=== PATIENT | male | born 1965 | race African-American/Black ===

== ENCOUNTER 2020-06-16 17:47 | Outpatient (CLI) | payer OTHER | END 2020-06-16 17:48 | disposition home or self-care (01) | LOC: LABBT 17:47 | PROVIDERS: ATTEND Surgery | DX: Z01.818 Encounter for other preprocedural examination (principal); Z20.822 Contact with and (suspected) exposure to COVID-19; M48.02 Spinal stenosis, cervical region | CPT/HCPCS: 80048; 85027; 85610; 85730; 86850; 86900; 86901; 87635; 93005; 93010; U0003; U0005 ==

== ENCOUNTER 2020-06-19 07:43 | Day surgery (SDC) | payer OTHER ==
[2020-06-16 21:11] LABS: Hemoglobin 14.3 g/dL (13.5-17.5); Mean Corpuscular HGB CONC 32.4 g/dL (32.0-36.0); Mean Corpuscular Hemoglobin 27.9 pg (27.0-33.0); Mean Corpuscular Volume 86.1 fl (81.2-95.1); Mean Platelet Volume 11.5 fl (7.4-10.4); Platelet Count 178 10x3/uL (150-450); RBC Distribution Width 12.8 % (11.5-14.5); Red Blood Cell (RBC) Count 5.12 10x6/uL (4.32-5.72); White Blood Cell (WBC) Count 5.9 10x3/uL (3.5-10.5)
[2020-06-16 21:23] LABS: Anion Gap 13 mmol/L (10-20); BUN (Urea Nitrogen) 18 mg/dL (8.4-25.7); Calc. Creatinine Clearance 0 mL/min (70-130); Calcium 9.1 mg/dL (7.8-10.44); Carbon Dioxide 31 mmol/L (22-29); Chloride 101 mmol/L (98-107); Glucose 73 mg/dL (70-105); Potassium 3.9 mmol/L (3.5-5.1); Sodium 141 mmol/L (136-145)
[2020-06-16 21:26] LABS: PTT 26.3 sec (22.0-33.0); Prothrombin Time 10.7 sec (9.5-12.1)
[2020-06-17 06:59] LABS: SARS-CoV-2 PCR by NAA Not Detected (NotDetected)
[2020-06-18 10:34] VITALS: BMI 30.5
[2020-06-19] MEDS ORDERED: Thrombin 5000 UNITS/5 ML VIAL ONE (08:57)
[2020-06-19] MEDS ORDERED: PHENYLEPHRINE-NS 100 MCG/ML 10 ML SYRINGE ONE (09:57)
[2020-06-19] MEDS ORDERED: Ondansetron PF 4 MG/2 ML Vial ONE (09:57)
[2020-06-19] MEDS ORDERED: ePHEDrine Sulfate 50 MG/10 ML VIAL ONE (09:57)
[2020-06-19] MEDS ORDERED: PROPOFOL 200 MG/20 ML VIAL ONE (09:57)
[2020-06-19] MEDS ORDERED: Dexamethasone 20 MG/5 ML VIAL ONE (09:57)
[2020-06-19] MEDS ORDERED: Lidocaine 1% PF 5 ML VIAL ONE (09:57)
[2020-06-19] MEDS ORDERED: Ketorolac Tromethamine 30 MG/ML VIAL ONE (09:57)
[2020-06-19] MEDS ORDERED: Glycopyrrolate 0.2 MG/ML 5 ML SYRINGE ONE (09:57)
[2020-06-19] MEDS ORDERED: Rocuronium Bromide 10 MG/ML (10ML VIAL) ONE (09:57)
[2020-06-19] MEDS ORDERED: Fentanyl 100 MCG/2 ML VIAL ONE ×3 (09:59→13:31)
[2020-06-19] MEDS ORDERED: SUGAMMADEX SODIUM 200 MG/2 ML VIAL ONE (12:06)
[2020-06-19] MEDS ORDERED: Acetaminophen 325 MG TAB PO PRN (12:39)
[2020-06-19] MEDS ORDERED: tiZANidine HCl 4 MG TAB PO PRN (12:39)
[2020-06-19] MEDS ORDERED: Bisacodyl 10 MG SUPP PR PRN (12:39)
[2020-06-19] MEDS ORDERED: Mag-Al 1200 mg/1200 mg/30 ML UDCUP PO PRN (12:39)
[2020-06-19] MEDS ORDERED: Morphine 2 MG/ML VIAL SLOW IVP PRN (12:39)
[2020-06-19] MEDS ORDERED: Ondansetron PF 4 MG/2 ML Vial IVP PRN (12:39)
[2020-06-19] MEDS ORDERED: traMADol HCl 50 MG TAB PO PRN (12:39)
[2020-06-19] MEDS ORDERED: Milk Of Magnesia 30 ML UDCUP PO PRN (12:39)
[2020-06-19] MEDS ORDERED: Promethazine HCl 25 MG/ML VIAL SLOW IVP PRN (12:42)
[2020-06-19] MEDS ORDERED: Promethazine HCl 25 MG/ML VIAL IM PRN (12:42)
[2020-06-19] MEDS ORDERED: Ondansetron HCl/PF 4 MG/2 ML Vial IVP PRN (12:42)
[2020-06-19] MEDS ORDERED: HYDROmorphone 2 MG/ML VIAL SLOW IVP PRN (12:42)
[2020-06-19] MEDS ORDERED: hydrALAZINE 20 MG/ML VIAL SLOW IVP PRN (12:42)
[2020-06-19] MEDS ORDERED: HYDROmorphone 2 MG/ML VIAL ONE (12:49)
[2020-06-19] MEDS ORDERED: HYDROmorphone 0.5 MG/0.5 ML SYRINGE ONE ×2 (12:50→13:31)
[2020-06-19] MEDS ORDERED: tiZANidine HCl 4 MG TAB ONE (12:58)
[2020-06-19] MEDS ORDERED: Tamsulosin HCl 0.4 MG CAP ONE (12:59)
[2020-06-19] MEDS ORDERED: Fluticasone Propionate Nasal Spray 16 gm Bottle NASAL PRN (13:42)
[2020-06-19] MEDS ORDERED: Methocarbamol 500 MG TAB PO PRN (13:45)
[2020-06-19] MEDS ORDERED: CEFAZOLIN 2 GM in Premix Bag 1 BAG IVPB SCH (14:00)
[2020-06-19] MEDS: Gabapentin 400 MG CAP PO SCH ×2 (14:50→20:39)
[2020-06-19] MEDS: Sodium Chloride 0.9% 1,000 ML IV SCH ×2 (14:55→23:41)
[2020-06-19] MEDS: CEFAZOLIN 2 GM in Premix Bag 1 BAG IVPB SCH (16:04)
[2020-06-19] MEDS: HYDROcodone/Acetaminophen 7.5/325 mg Tablet PO PRN ×2 (17:32→23:37)
[2020-06-19] MEDS: Acetaminophen/Codeine 30-300mg Tablet PO PRN (20:38)
[2020-06-19] MEDS: Atorvastatin Calcium 20 MG TAB PO SCH (20:39)
[2020-06-19] MEDS: Amlodipine 10 MG TAB PO SCH (20:39)
[2020-06-19] MEDS: Tamsulosin HCl 0.4 MG CAP PO SCH (20:40)
[2020-06-19] MEDS: Metamucil PACK PO SCH (20:40)
[2020-06-20] MEDS: CEFAZOLIN 2 GM in Premix Bag 1 BAG IVPB SCH ×3 (00:49→16:00)
[2020-06-20] MEDS: HYDROcodone/Acetaminophen 7.5/325 mg Tablet PO PRN ×3 (08:35→22:38)
[2020-06-20] MEDS: Finasteride 5 MG TAB PO SCH (08:35)
[2020-06-20] MEDS: Loratadine 10 MG TAB PO SCH (08:36)
[2020-06-20] MEDS: PARoxetine 20 MG TAB PO SCH (08:36)
[2020-06-20] MEDS: Gabapentin 400 MG CAP PO SCH ×3 (08:36→19:53)
[2020-06-20] MEDS: Hydrochlorothiazide 25 MG TAB PO SCH (08:36)
[2020-06-20] MEDS: Metoprolol Tartrate 25 MG TAB PO SCH (08:37)
[2020-06-20] MEDS: Cholecalciferol 1,000 UNITS (25 MCG) TAB PO SCH (08:37)
[2020-06-20] MEDS: Tamsulosin HCl 0.4 MG CAP PO SCH ×2 (08:38→19:53)
[2020-06-20] MEDS: Sodium Chloride 0.9% 1,000 ML IV SCH (14:35)
[2020-06-20] MEDS: Atorvastatin Calcium 20 MG TAB PO SCH (19:52)
[2020-06-20] MEDS: Amlodipine 10 MG TAB PO SCH (19:52)
[2020-06-20] MEDS: Metamucil PACK PO SCH (19:54)
[2020-06-21] MEDS: Acetaminophen/Codeine 30-300mg Tablet PO PRN ×2 (03:32→09:44)
[2020-06-21] MEDS: Sodium Chloride 0.9% 1,000 ML IV SCH (04:26)
[2020-06-21] MEDS: HYDROcodone/Acetaminophen 7.5/325 mg Tablet PO PRN ×2 (04:43→11:15)
[2020-06-21] MEDS: Loratadine 10 MG TAB PO SCH (09:41)
[2020-06-21] MEDS: Hydrochlorothiazide 25 MG TAB PO SCH (09:41)
[2020-06-21] MEDS: Metoprolol Tartrate 25 MG TAB PO SCH (09:41)
[2020-06-21] MEDS: Finasteride 5 MG TAB PO SCH (09:42)
[2020-06-21] MEDS: Cholecalciferol 1,000 UNITS (25 MCG) TAB PO SCH (09:42)
[2020-06-21] MEDS: Tamsulosin HCl 0.4 MG CAP PO SCH (09:43)
[2020-06-21] MEDS: Gabapentin 400 MG CAP PO SCH (09:44)
[2020-06-21] MEDS: PARoxetine 20 MG TAB PO SCH (09:46)
[2020-06-21 11:04] VITALS: BP 142/86; TEMP 97.9
== END 2020-06-21 11:50 | disposition home or self-care (01) ==
LOC: SDC 07:43 → SJJU 12:38 → SDC 06-21 11:50
PROVIDERS: ATTEND Surgery
PROC: 0RG20A0 Fusion of 2 or more Cervical Vertebral Joints with Interbody Fusion Device, Anterior Approach, Anterior Column, Open Approach (ICD-10-PCS; principal; 2020-06-19)
PROC: 0RG2070 Fusion of 2 or more Cervical Vertebral Joints with Autologous Tissue Substitute, Anterior Approach, Anterior Column, Open Approach (ICD-10-PCS; principal; 2020-06-19)
PROC: 0RT30ZZ Resection of Cervical Vertebral Disc, Open Approach (ICD-10-PCS; principal; 2020-06-19)
DX: M48.02 Spinal stenosis, cervical region (principal); M50.121 Cervical disc disorder at C4-C5 level with radiculopathy; M50.021 Cervical disc disorder at C4-C5 level with myelopathy; I10 Essential (primary) hypertension; E78.5 Hyperlipidemia, unspecified; G47.30 Sleep apnea, unspecified; N40.0 Benign prostatic hyperplasia without lower urinary tract symptoms; Z79.82 Long term (current) use of aspirin; Z79.899 Other long term (current) drug therapy; Z87.891 Personal history of nicotine dependence
CPT/HCPCS: 36415; 76000; 80048; 85027; 85610; 85730; 86850; 86900; 86901; 87635; C1713; C1768; C1776; J0690; J1100; J1170; J1885; J2270; J2405; J2704; J3010; U0003; U0005

== ENCOUNTER 2020-07-30 11:21 | Outpatient (CLI) | payer OTHER | END 2020-07-30 11:22 | disposition home or self-care (01) | LOC: BICRAD 11:21 | PROVIDERS: ATTEND Physician Assistant | DX: M50.10 Cervical disc disorder with radiculopathy, unspecified cervical region (principal); M48.02 Spinal stenosis, cervical region; Z98.1 Arthrodesis status | CPT/HCPCS: 72040 ==

== ENCOUNTER 2021-01-02 09:53 | Outpatient (CLI) | payer OTHER | END 2021-01-02 09:54 | disposition home or self-care (01) | LOC: TBSIIMAG 09:53 | PROVIDERS: ATTEND Surgery | DX: M48.062 Spinal stenosis, lumbar region with neurogenic claudication (principal); M51.26 Other intervertebral disc displacement, lumbar region; M51.27 Other intervertebral disc displacement, lumbosacral region | CPT/HCPCS: 72148 ==

== ENCOUNTER 2021-01-27 17:01 | Outpatient (CLI) | payer OTHER ==
[2021-01-27 18:18] LABS: Hemoglobin 13.9 g/dL (13.5-17.5); Mean Corpuscular HGB CONC 32.3 g/dL (32.0-36.0); Mean Corpuscular Hemoglobin 28.1 pg (27.0-33.0); Mean Corpuscular Volume 86.9 fl (81.2-95.1); Mean Platelet Volume 11.2 fl (7.4-10.4); Platelet Count 238 10x3/uL (150-450); RBC Distribution Width 12.4 % (11.5-14.5); Red Blood Cell (RBC) Count 4.95 10x6/uL (4.32-5.72); White Blood Cell (WBC) Count 5.9 10x3/uL (3.5-10.5)
[2021-01-27 18:29] LABS: PTT 25.7 sec (22.0-33.0); Prothrombin Time 10.7 sec (9.5-12.1)
[2021-01-27 18:32] LABS: Anion Gap 12 mmol/L (10-20); BUN (Urea Nitrogen) 16 mg/dL (8.4-25.7); Calc. Creatinine Clearance 0 mL/min (70-130); Carbon Dioxide 29 mmol/L (22-29); Chloride 103 mmol/L (98-107); Glucose 92 mg/dL (70-105); Potassium 3.6 mmol/L (3.5-5.1); Sodium 140 mmol/L (136-145)
[2021-01-28 01:35] LABS: SARS-CoV-2 PCR by NAA Not Detected (NotDetected)
== END 2021-01-27 17:02 | disposition home or self-care (01) ==
LOC: LABBT 17:01
PROVIDERS: ATTEND Surgery
DX: Z01.818 Encounter for other preprocedural examination (principal); M54.16 Radiculopathy, lumbar region; M48.062 Spinal stenosis, lumbar region with neurogenic claudication; Z20.822 Contact with and (suspected) exposure to COVID-19
CPT/HCPCS: 80048; 85027; 85610; 85730; 93005; 93010; U0003; U0005

== ENCOUNTER 2021-01-29 07:44 | Inpatient (IN) | payer OTHER ==
[2021-01-29] MEDS ORDERED: ceFAZolin 2 GM/DEX 5% 100 ML BAG ONE (08:15)
[2021-01-29] MEDS ORDERED: Thrombin 5000 UNITS/5 ML VIAL ONE ×2 (10:17→14:09)
[2021-01-29] MEDS ORDERED: traMADol HCl 50 MG TAB PO PRN (10:59)
[2021-01-29] MEDS ORDERED: Acetaminophen 325 MG TAB PO PRN (10:59)
[2021-01-29] MEDS ORDERED: Midazolam HCl 2 mg/2 ml Vial ONE ×2 (11:01→11:02)
[2021-01-29] MEDS ORDERED: Fentanyl 100 MCG/2 ML VIAL ONE ×3 (11:01→16:10)
[2021-01-29] MEDS ORDERED: Dexamethasone 20 MG/5 ML VIAL ONE (11:21)
[2021-01-29] MEDS ORDERED: PHENYLEPHRINE-NS 100 MCG/ML 10 ML SYRINGE ONE (11:21)
[2021-01-29] MEDS ORDERED: Rocuronium Bromide 10 MG/ML (10ML VIAL) ONE (11:21)
[2021-01-29] MEDS ORDERED: Ondansetron PF 4 MG/2 ML Vial ONE (11:21)
[2021-01-29] MEDS ORDERED: Ketorolac Tromethamine 30 MG/ML VIAL ONE (11:21)
[2021-01-29] MEDS ORDERED: PROPOFOL 200 MG/20 ML VIAL ONE (11:21)
[2021-01-29] MEDS ORDERED: Glycopyrrolate 0.2 MG/ML 5 ML SYRINGE ONE (11:21)
[2021-01-29] MEDS ORDERED: ePHEDrine 50 MG/ML VIAL ONE (11:21)
[2021-01-29] MEDS ORDERED: Fluticasone Propionate Nasal Spray 16 gm Bottle NASAL PRN (12:55)
[2021-01-29] MEDS: Morphine 4 MG/ML VIAL SLOW IVP PRN (18:01)
[2021-01-29] MEDS: Gabapentin 400 MG CAP PO SCH ×3 (18:06→20:47)
[2021-01-29] MEDS: Sodium Chloride 0.9% 1,000 ML IV SCH (18:07)
[2021-01-29] MEDS: CEFAZOLIN 2 GM, Admixture Fee 1 EACH in Sodium Chloride 0.9% 100 ML IVPB SCH ×2 (18:31→23:59)
[2021-01-29] MEDS: Tamsulosin HCl 0.4 MG CAP PO SCH (20:47)
[2021-01-29] MEDS: Atorvastatin Calcium 20 MG TAB PO SCH (20:47)
[2021-01-29] MEDS: Amlodipine 10 MG TAB PO SCH (20:47)
[2021-01-29] MEDS: ceFAZolin Sodium/D5W 2 GM in Premix Bag 1 BAG IVPB SCH (20:48)
[2021-01-29] MEDS: HYDROcodone/Acetaminophen 7.5/325 mg Tablet PO PRN (20:57)
[2021-01-30] MEDS: Morphine 4 MG/ML VIAL SLOW IVP PRN ×4 (00:03→22:52)
[2021-01-30] MEDS: ceFAZolin Sodium/D5W 2 GM in Premix Bag 1 BAG IVPB SCH (02:48)
[2021-01-30] MEDS: Sodium Chloride 0.9% 1,000 ML IV SCH ×3 (03:14→22:53)
[2021-01-30] MEDS: HYDROcodone/Acetaminophen 7.5/325 mg Tablet PO PRN ×3 (03:20→20:23)
[2021-01-30] MEDS ORDERED: Prevnar 13-Val Conj/PF 0.5 ML SYRINGE IM ONE (09:00)
[2021-01-30] MEDS: Loratadine 10 MG TAB PO SCH (09:07)
[2021-01-30] MEDS: Cholecalciferol 1,000 UNITS (25 MCG) TAB PO SCH (09:07)
[2021-01-30] MEDS: Hydrochlorothiazide 25 MG TAB PO SCH (09:07)
[2021-01-30] MEDS: Gabapentin 400 MG CAP PO SCH ×3 (09:07→20:21)
[2021-01-30] MEDS: Finasteride 5 MG TAB PO SCH (09:07)
[2021-01-30] MEDS: tiZANidine HCl 4 MG TAB PO PRN ×2 (09:08→18:03)
[2021-01-30] MEDS: Tamsulosin HCl 0.4 MG CAP PO SCH ×2 (09:08→20:22)
[2021-01-30] MEDS: Metoprolol Tartrate 25 MG TAB PO SCH (09:08)
[2021-01-30] MEDS: Atorvastatin Calcium 20 MG TAB PO SCH (20:22)
[2021-01-30] MEDS: Amlodipine 10 MG TAB PO SCH (20:24)
[2021-01-30] MEDS ORDERED: Metamucil PACK PO SCH (21:00)
[2021-01-31] MEDS: HYDROcodone/Acetaminophen 7.5/325 mg Tablet PO PRN (02:54)
[2021-01-31] MEDS: Acetaminophen/Codeine 30-300mg Tablet PO PRN ×2 (03:58→09:01)
[2021-01-31] MEDS: Morphine 4 MG/ML VIAL SLOW IVP PRN (05:49)
[2021-01-31 05:53] VITALS: BMI 30.7
[2021-01-31] MEDS: Hydrochlorothiazide 25 MG TAB PO SCH (08:57)
[2021-01-31] MEDS: Tamsulosin HCl 0.4 MG CAP PO SCH (08:57)
[2021-01-31] MEDS: Cholecalciferol 1,000 UNITS (25 MCG) TAB PO SCH (08:57)
[2021-01-31] MEDS: Finasteride 5 MG TAB PO SCH (08:57)
[2021-01-31] MEDS: Gabapentin 400 MG CAP PO SCH (08:57)
[2021-01-31] MEDS: Loratadine 10 MG TAB PO SCH (08:57)
[2021-01-31] MEDS: Metoprolol Tartrate 25 MG TAB PO SCH (08:57)
[2021-01-31 11:36] VITALS: BP 125/82; TEMP 98.7
== END 2021-01-31 12:50 | disposition home or self-care (01) | DRG 520 ==
LOC: SDC 07:44 → T4-A 10:59 → OBSVTOIN 01-30 10:17
PROVIDERS: ADMIT Surgery; ATTEND Surgery
PROC: 01NB0ZZ Release Lumbar Nerve, Open Approach (ICD-10-PCS; principal; 2021-01-30)
PROC: 0SB40ZZ Excision of Lumbosacral Disc, Open Approach (ICD-10-PCS; 2021-01-30)
PROC: 01NR0ZZ Release Sacral Nerve, Open Approach (ICD-10-PCS; 2021-01-30)
PROC: 0SB20ZZ Excision of Lumbar Vertebral Disc, Open Approach (ICD-10-PCS; 2021-01-30)
DX: M48.061 Spinal stenosis, lumbar region without neurogenic claudication (principal); M51.26 Other intervertebral disc displacement, lumbar region
CPT/HCPCS: 76000; 90471; 90670; 96365; 96376; C1713; G0009; G0378; J0690; J1100; J1885; J2250; J2270; J2405; J2704; J3010; J3370; J3490; J7050

== ENCOUNTER 2021-11-09 08:24 | Outpatient (CLI) | payer OTHER, BC ==
[2021-11-09] MEDS ORDERED: Magnevist 469MG/ML 20 ML VIAL ONE (10:39)
== END 2021-11-09 08:25 | disposition home or self-care (01) ==
LOC: TBSIIMAG 08:24
PROVIDERS: ATTEND Surgery
DX: M47.26 Other spondylosis with radiculopathy, lumbar region (principal); Z98.890 Other specified postprocedural states
CPT/HCPCS: 72100; 72158; A9579